=== PATIENT | female | born 1970 | race Caucasian/White ===

== ENCOUNTER → 2020-09-02 16:48 | Outpatient (BNVA) | payer SELFPAY | PROVIDERS: Family Provider Internal Medicine; Visit Provider Family Medicine | DX: N39.41 Urge incontinence (principal) | CPT/HCPCS: 81000 ==

== ENCOUNTER → 2020-10-15 17:09 | Outpatient (BNVA) | payer OTHER, SELFPAY | PROVIDERS: Family Provider Internal Medicine; Visit Provider Family Medicine | DX: M25.551 Pain in right hip (principal); M25.561 Pain in right knee | CPT/HCPCS: 73502; 73560 ==

== ENCOUNTER 2020-11-11 09:56 | Outpatient (CLI) | payer OTHER, SELFPAY ==
--- NOTE | 2020-11-11 10:42 | MR_ITS ---
WS: [id number] INDICATION: Hip pain TECHNIQUE: MRI of the hips bilateral without gadolinium enhancement.Axial T1, axial T2, coronal STIR, coronal T1, and bilateral hips sagittal T1 and T2 imaging visualized sacrum.. Some images degraded b y patient motion. FINDINGS: Moderate to advanced degenerative narrowing right hip. Diffuse increased T2 signal abnormal ity involving the right femoral head extending into the proximal femoral neck with some serpiginous l ow-attenuation signal abnormality most consistent with avascular necrosis. This extends to the articu lar surface superolaterally. In addition, T2 signal abnormality consistent with edema and subchondral cystic change involving the adjacent acetabulum extending into the ilium. Soft tissue edema involvin g the right pelvic ilium. Left hip is normal in appearance. Normal pubic rami. Mild lumbar curve lower lumbar spine. Normal may ne marrow signal in the sacrum. No inguinal lymphadenopathy. Left hip is normal MR/MR hips BI wo con [id number] IMPRESSION: 1. Diffuse extensive edema involving the right femoral head and neck extending to the superior lateral articular surface. Associated edema involving the duke cent acetabulum extending into the ilium. Findings suspicious for avascular nec rosis. 2. Small amount of edema in the pelvic soft tissues adjacent to the ilium. 3. Moderate to advanced degenerative narrowing right hip. 4. Normal left hip. 5. Normal bone marrow signal in the visualized sacrum
== END 2020-11-11 09:57 | disposition home or self-care (01) ==
LOC: RADWPI 10:02
PROVIDERS: PCP Internal Medicine; Visit Provider Family Medicine
DX: M25.551 Pain in right hip (principal); M25.552 Pain in left hip; R60.0 Localized edema
CPT/HCPCS: 73721

== ENCOUNTER 2021-05-10 20:00 | Outpatient (CLI) | payer MEDICAID, SELFPAY | END 2021-05-10 20:01 | disposition home or self-care (01) | LOC: SLEEP 05-11 08:45 | PROVIDERS: PCP Family Medicine; Visit Provider Family Medicine | DX: G47.30 Sleep apnea, unspecified (principal) | CPT/HCPCS: 95810 ==

== ENCOUNTER 2021-05-26 10:57 | Outpatient (CLI) | payer MEDICAID, SELFPAY ==
[2021-05-26 11:30] VITALS: BMI 40.7
--- NOTE | 2021-05-26 11:34 | ECG_ITS ---
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 Interpretive Statements NAME OF STUDY: TREADMILL STRESS ECHOCARDIOGRAM INDICATION: [Chest Pain, ] EXERCISE DATA: The patient was exercised by Jason protocol. Baseline heart rate was 82 beats per minute. Baseline blood pressure was 129/87 millimeters of mercury. Target heart rate was 143 beats per minute. Maximum heart rate achieved was 146, which was 102% of the target heart rate. Maximum blood pressure was 194/80 millimeters of mercury. Total exercise time was 5 minutes and 35 seconds. Maximum METs achieved was 7, maximum VO2 was 24.5. The reason for ending the test was completion of the protocol. The patient complained of shortness of breath during the stress test, which then resolved at the end of the test. ELECTROCARDIOGRAM: BASELINE: Showed sinus rhythm, normal axis, no significant ST-T changes at the baseline noted. [] EXERCISE: At the peak exercise level, [] No significant ST-T changes suggestive of ischemia noted. [] RECOVERY: During the recovery period, heart rate dropped appropriately. No significant ST-T changes in the recovery suggestive of ischemia noted. [] CONCLUSION: 1. Exercise capacity fair. 2. Heart rate response was appropriate. 3. Blood pressure response was appropriate. 4. Symptoms not suggestive of ischemia. 5. Electrocardiogram portion of the stress test was not suggestive of ischemia. Electronically Signed On 06-04-2021 9:52:00 CDT by Zackary Gerber M.D. [id number]
--- NOTE | 2021-05-26 11:35 | USCV_ITS ---
Stress Echo Bernadine Basilio Age: 50 Gender: F : 1970 Exam Date: 05/26/2021 11:43 Ordering Phys: Carole Bertrand MD Technologist: [place] [facility] [place]: chest pain Rhythm: Sinus Patient History: cp Cardiac Medications: Medications in past 24 hours: Contrast: Stress Results Protocol: Jason Total dose(mL): Exercise Duration (min:sec): 5:35 METS: 7 Resting HR: 82 Resting BP: 129 / 87 Peak HR: 146 Peak BP: 194 / 94 Max Predicted HR: 169 86 % Max Predicted HR Target HR: 144 Double Product: [id number] Stress Summary: The patient's target heart rate was achieved The hemodynamic response to exercise was normal BP Response: Normal Reason for Termination: Test terminated after reaching target heart rate (85% max predicted) Cardiac Symptoms: None ECG Analysis Resting ECG: Normal sinus rhythm Stress ECG: Sinus tachycardia. No ST-T wave changes. Arrhythmia: None MEASUREMENTS (Male/Female) Normal Values FINDINGS Baseline echocardiogram shows normal LV systolic function. Normal RV function. No regional wall motion abnormalities are seen. At peak exercise, no regional wall motion abnormalities are seen. However images are obtained 6-7 beats below target heart rate. This reduces the overall sensitivity of the stress test. No evidence of ischemia. CONCLUSIONS 1. Baseline echocardiogram shows normal LV systolic function. No regional wall motion abnormalities are seen. 2. Appropriate heart rate and blood pressure response. 3. At peak stress, no evidence of ischemia seen however images are obtained 67 beats below target heart rate. This reduces sensitivity of the stress test. 4. Stress test does not reveal a regional wall motion abnormalities/ evidence of ischemia. Zackary Gerber MD (Electronically Signed) Final Date: 04 June 2021 10:22 S
[2021-05-26 12:04] VITALS: BP 137/83; PULSE 95
== END 2021-05-26 10:58 | disposition home or self-care (01) ==
LOC: CDL 11:01
PROVIDERS: PCP Family Medicine; Visit Provider Family Medicine
DX: R07.9 Chest pain, unspecified (principal); R06.02 Shortness of breath
CPT/HCPCS: 93017; 93350

== ENCOUNTER → 2021-06-03 10:00 | Outpatient (BNVA) | payer MEDICAID, SELFPAY | PROVIDERS: PCP Family Medicine; Visit Provider Family Medicine | DX: I10 Essential (primary) hypertension (principal); F41.8 Other specified anxiety disorders; G47.30 Sleep apnea, unspecified; R53.83 Other fatigue | CPT/HCPCS: 80053; 80061; 82306; 82607; 83540; 84443; 85025 ==

== ENCOUNTER → 2021-06-09 17:02 | Outpatient (BNVA) | payer MEDICAID, OTHER, SELFPAY | PROVIDERS: PCP Family Medicine; Visit Provider Family Medicine | DX: R05.9 Cough, unspecified (principal); Z20.822 Contact with and (suspected) exposure to COVID-19 | CPT/HCPCS: 87635 ==

== ENCOUNTER → 2021-10-27 12:29 | Outpatient (BNVA) | payer MEDICAID, SELFPAY | PROVIDERS: PCP Family Medicine; Visit Provider Family Medicine | DX: G56.03 Carpal tunnel syndrome, bilateral upper limbs (principal); I10 Essential (primary) hypertension; R73.9 Hyperglycemia, unspecified; F41.8 Other specified anxiety disorders; H60.90 Unspecified otitis externa, unspecified ear | CPT/HCPCS: 80053; 83036; 85025 ==

== ENCOUNTER → 2021-11-19 11:02 | Outpatient (BNVA) | payer MEDICAID, SELFPAY | PROVIDERS: PCP Family Medicine; Visit Provider Family Medicine | DX: R19.7 Diarrhea, unspecified (principal) | CPT/HCPCS: 83630; 87177; 87209; 87493; 87506 ==

== ENCOUNTER 2021-12-21 08:13 | Outpatient (CLI) | payer MEDICAID, SELFPAY ==
--- NOTE | 2021-12-21 08:20 | MM_ITS ---
WS: [id number] BILATERAL SCREENING DIGITAL BREAST TOMOSYNTHESIS MAMMOGRAM WITH CAD HISTORY: Z12.31 - Encounter for screening mammogram for neoplasm. COMPARISON: 11/19/2018 and 01/21/2015 Bilateral CC and MLO views with tomosynthesis and synthetic mammography submitted. Computer aided det ection analyzed. Breast composition: There are scattered areas of fibroglandular density. No suspicious masses, microc alcifications or architectural distortion. Benign calcifications in each breast. MM/[place] [id number] IMPRESSION: BI-RADS: 2-Benign FOLLOW UP: 1 Year Follow-up
== END 2021-12-21 08:14 | disposition home or self-care (01) ==
LOC: RAD 08:15
PROVIDERS: PCP Family Medicine; Visit Provider Family Medicine
DX: Z12.31 Encounter for screening mammogram for malignant neoplasm of breast (principal)
CPT/HCPCS: 77063; 77067; 99203

== ENCOUNTER → 2021-12-29 10:59 | Outpatient (BNVA) | payer MEDICAID, SELFPAY | PROVIDERS: PCP Family Medicine; Referring Provider Family Medicine; Visit Provider Specialist | DX: G56.03 Carpal tunnel syndrome, bilateral upper limbs (principal) | CPT/HCPCS: 95910; 95912 ==

== ENCOUNTER → 2022-10-17 11:36 | Outpatient (BNVA) | payer MEDICAID, SELFPAY | PROVIDERS: PCP Family Medicine; Visit Provider Nurse Practitioner Family | DX: J02.9 Acute pharyngitis, unspecified (principal) | CPT/HCPCS: 87071 ==

== ENCOUNTER → 2022-11-24 09:15 | Outpatient (BNVA) | payer MEDICAID, SELFPAY | PROVIDERS: PCP Family Medicine; Visit Provider Family Medicine | DX: E55.9 Vitamin D deficiency, unspecified (principal); E11.9 Type 2 diabetes mellitus without complications; I10 Essential (primary) hypertension; G47.30 Sleep apnea, unspecified | CPT/HCPCS: 80053; 80061; 82306; 83036; 84443 ==

== ENCOUNTER 2022-12-08 09:51 | Emergency (ER) | payer MEDICAID, SELFPAY ==
[2022-12-08 10:27] VITALS: TEMP 36; BMI 37.7
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
[2022-12-08 11:22] VITALS: BP 112/79; PULSE 85; RESP 16; O2SAT 97
== END 2022-12-08 12:11 | disposition home or self-care (01) ==
PROVIDERS: Emergency Provider Physician Assistant; PCP Family Medicine
DX: S80.211A Abrasion, right knee, initial encounter (principal); M25.512 Pain in left shoulder; S16.1XXA Strain of muscle, fascia and tendon at neck level, initial encounter; E11.9 Type 2 diabetes mellitus without complications; I10 Essential (primary) hypertension; F17.290 Nicotine dependence, other tobacco product, uncomplicated; V89.2XXA Person injured in unspecified motor-vehicle accident, traffic, initial encounter
CPT/HCPCS: 72040; 99284

== ENCOUNTER 2023-01-24 20:00 | Outpatient (CLI) | payer MEDICAID, SELFPAY | END 2023-01-24 20:01 | disposition home or self-care (01) | LOC: SLEEP 01-25 05:41 | PROVIDERS: PCP Family Medicine; Visit Provider Family Medicine | DX: G47.33 Obstructive sleep apnea (adult) (pediatric) (principal) | CPT/HCPCS: 95811 ==

== ENCOUNTER → 2023-05-16 10:48 | Outpatient (BNVA) | payer MEDICAID, SELFPAY | PROVIDERS: PCP Family Medicine; Visit Provider Family Medicine | DX: E11.9 Type 2 diabetes mellitus without complications (principal); F41.8 Other specified anxiety disorders; I10 Essential (primary) hypertension | CPT/HCPCS: 80053; 80061; 82306; 83036; 84443; 85025 ==

== ENCOUNTER → 2023-11-17 11:17 | Outpatient (BNVA) | payer MEDICAID, SELFPAY | PROVIDERS: PCP Family Medicine; Visit Provider Family Medicine | DX: R53.83 Other fatigue (principal); M54.2 Cervicalgia; W57.XXXA Bitten or stung by nonvenomous insect and other nonvenomous arthropods, initial encounter | CPT/HCPCS: 86618; 86663; 86666; 86757 ==

== ENCOUNTER → 2023-11-29 08:25 | Outpatient (BNVA) | payer MEDICAID, SELFPAY | PROVIDERS: PCP Family Medicine; Visit Provider Family Medicine | DX: M54.2 Cervicalgia (principal); Z79.899 Other long term (current) drug therapy | CPT/HCPCS: 86140 ==

== ENCOUNTER → 2024-09-19 10:17 | Outpatient (BNVA) | payer MEDICARE, SELFPAY | PROVIDERS: Family Provider Family Medicine; PCP Family Medicine; Visit Provider Family Medicine | DX: E11.9 Type 2 diabetes mellitus without complications (principal); E55.9 Vitamin D deficiency, unspecified; M25.50 Pain in unspecified joint; R21 Rash and other nonspecific skin eruption | CPT/HCPCS: 80053; 80061; 82306; 83036; 84443; 85651; 86038; 86140; 86431 ==